=== PATIENT | female | born 1985 | race Caucasian/White ===

== ENCOUNTER 2021-02-12 13:32 | Emergency (ER) | payer BC, SELFPAY ==
[2021-02-12 13:45] VITALS: BP 126/80; PULSE 67; RESP 16; TEMP 36.7; O2SAT 100
--- NOTE | 2021-02-12 13:57 | ED.FEMALEGU ---
HPI - Female Genitourinary General Chief complaint: Urogenital-Female Stated complaint: poss uti Time Seen by Provider: 02/12/21 13:57 Source: patient Mode of arrival: ambulatory Limitations: no limitations History of Present Illness HPI Narrative: Claire is a 35 yo female who comes into the [facility] with complaints of lower abdominal pain and blood in urine that started about 2 to 3 hours ago sleep. States she has never had a UTI before. Has suprapubic cramping; mendtrual cycle was last week Related Data Allergies Allergy/AdvReac Type Severity Reaction Status Date / Time No Known Allergies Allergy Verified 02/12/21 13:47 Review of Systems Review of Systems: CONSTITUTIONAL: Denies fever, chills, sweats. EYES: Denies visual changes, redness, discharge. ENT: Denies rhinorrhea, congestion, sore throat, otalgia. CARDIOVASCULAR: Denies chest pain, palpitations, edema. RESPIRATORY: Denies dyspnea, wheezing, cough GASTROINTESTINAL: Denies abdominal pain, nausea, vomiting, diarrhea. GENITOURINARY: Denies dysuria, hematuria, abnormal discharge blood in urine with suprapubic discomfort SKIN: Denies rash or itching. NEUROLOGIC: Denies numbness, or focal weakness. PSYCHIATRIC: Denies anxiety or depression. PMFSH Past Medical History Medical History No active medical problems Family History Family History (Updated 02/12/21 @ 14:07 by Dinora Esquivel CNP) Other No active medical problems Social History Social History (Updated 02/12/21 @ 14:07 by Dinora Esquivel CNP) Smoking status: Never smoker Alcohol intake: never Living arrangements: with family Occupation/Education: other Comments At time of signature, I agree with nursing past medical, surgical, social and family history. There is no relevant family history pertinent to the presenting complaint. Exam Narrative: GENERAL: This is a well-nourished, well-developed patient, in mild distress. HEAD: normocephalic, atraumatic. EYES: Sclera clear/white. Vision is grossly intact. EARS: External ears normal, auditory canals clear and without drainage, TMs normal without perforation. Hearing grossly intact. NOSE: External nose normal without nasal discharge, nares without redness, no rhinorrhea. THROAT: Mucous membranes moist, NECK: Neck supple, non-tender CARDIOVASCULAR: Regular rate and rhythm without murmurs, gallops, or rubs. RESPIRATORY: Clear to auscultation. Breath sounds equal bilaterally. No wheezes, rales, or rhonchi. GASTROINTESTINAL: Abdomen soft, -tender, SKIN: warm, intact with no suspicious lesions or rash, good texture and turgor. NEURO: awake, alert, and oriented to person, place and time. There were no obvious focal neurologic abnormalities. Steady gait EXTREMITIES: Normal range of motion. BACK: Nontender without deformity Course Course Emergency Course: Patient comes with blood in urine that started a few hours ago UA is positive for nitrites and 1+ leukocytes +3+ protein 3+ blood Given Rocephin 500 mg IM here Started on cephalexin 500 mg 1 twice daily x5 days also given Pyridium Vital Signs Vital signs: Vital Signs Temperature 98.1 F 02/12/21 13:45 Pulse Rate 67 02/12/21 13:45 Respiratory Rate 16 02/12/21 13:45 Blood Pressure 126/80 02/12/21 13:45 Pulse Oximetry 100 02/12/21 13:45 Temperature 98.1 F 02/12/21 13:45 Pulse Rate 67 02/12/21 13:45 Respiratory Rate 16 02/12/21 13:45 Blood Pressure 126/80 02/12/21 13:45 Pulse Oximetry 100 02/12/21 13:45 MDM - Female Genitourinary Differential Diagnosis Differential diagnosis: Likely urinary tract infection, bacterial vaginosis, cystitis and other Lab Data Labs: Urine Glucose Negative Reference Range: Negative Urine Bilirubin 1+ Reference Range: Negat
[2021-02-12] MEDS: LIDOCAINE HCL 1% LOCAL INJ 20 ML VIAL IM (14:19)
[2021-02-12] MEDS: cefTRIAXone 500 MG VIAL IM (14:20)
== END 2021-02-12 14:35 | disposition home or self-care (01) ==
PROVIDERS: Emergency Provider Nurse Practitioner
DX: N30.01 Acute cystitis with hematuria (principal); D57.3 Sickle-cell trait
CPT/HCPCS: 81003; 87077; 87086; 87088; 87186; 96372; 99213; G0463; J0696